=== PATIENT | male | born 1970 | race Caucasian/White ===

== ENCOUNTER 2016-10-05 23:36 | Emergency (ER) | payer MEDICARE, MEDICAID ==
[~2016-10-05] VITALS: Ht 180.3 cm; Wt 86.2 kg
[~2016-10-05 23:36] MED LIST: ADDERALL XR20 MG PO; CIPRO500 MG PO; CYCLOBENZAPRINE5 M3 PO; FLOMAX0.4 MG PO; HYDROCODONE BIT1 T11 PO; LAMICTAL200 MG PO; LEXAPRO20 MG PO; MACROBID100 M1 PO; MEDROL DOSEPAK4 MG PO; Motrin,Rufen800 MG PO; PERCOCET 325 MG1 TA2 PO; PYRIDIUM200 M1 PO; TRAZODONE HCL300 MG PO; ULTRAM50 MG PO; VALIUM10 MG PO; ZOFRAN ODT4 MG SL
[2016-10-06 00:04] LABS: BASO # 0.1 10*3/uL (0.0-0.1); BASO % 0.9 % (0.0-1.0); EOS # 0.3 10*3/uL (0.0-0.4); EOS % 2.1 % (1.0-4.0); HEMATOCRIT 46.8 % (42.0-52.0); HEMOGLOBIN 16.1 g/dl (14.0-18.0); LYMPH # 4.5 10*3/uL (1.3-4.4); LYMPH % 38.2 % (27.0-41.0); MEAN CELL VOLUME 92.3 fl (80.0-94.0); MEAN CORPUSCULAR HGB 31.8 pg (27.0-31.0); MEAN CORPUSCULAR HGB CONC 34.4 g/dl (33.0-37.0); MONO # 0.9 10*3/uL (0.1-1.0); MONO % 7.2 % (3.0-9.0); NEUT % 51.3 % (47.0-73.0); PLATELET COUNT AUTOMATED 212 10*3/uL (130-400); RED BLOOD COUNT 5.07 10*6/uL (4.50-5.90); RED CELL DISTRI WIDTH 12.2 % (0-14.5); WHITE BLOOD COUNT 11.7 10*3/uL (4.8-10.8)
[2016-10-06 00:19] LABS: ALBUMIN 4.1 gm/dl (3.1-4.5); ALKALINE PHOSPHATASE 102 U/L (45-117); BILIRUBIN, DIRECT 0.1 mg/dL (0.0-0.2); BILIRUBIN, TOTAL 0.5 mg/dl (0.2-1.0); BUN 15 mg/dl (7-24); CARBON DIOXIDE 27 mmol/L (21-32); CHLORIDE 107 mmol/L (98-107); EST GLOM FILT AFRICAN AMERICAN > 60 ml/min; GLUCOSE 110 mg/dL (65-99); POTASSIUM 3.3 mmol/L (3.5-5.1); SGOT/AST 15 IU/L (3-35); SGPT/ALT 38 U/L (12-78); SODIUM 142 mmol/L (136-145); TOTAL PROTEIN 7.1 gm/dL (6.4-8.2)
[2016-10-06] MEDS ORDERED: CATAPRES0.2 M1 PO (01:04)
[2016-10-06] MEDS ORDERED: PREDNISONE50 MG PO (01:04)
== END 2016-10-06 01:32 | disposition home or self-care (01) ==
LOC: ED 23:36
PROVIDERS: Emergency Medicine
DX: R20.2 Paresthesia of skin (principal); I15.9 Secondary hypertension, unspecified; Z87.442 Personal history of urinary calculi; Z79.899 Other long term (current) drug therapy; Z88.6 Allergy status to analgesic agent; Z88.5 Allergy status to narcotic agent

== ENCOUNTER 2016-10-28 10:53 | Emergency (ER) | payer MEDICARE, MEDICAID ==
[~2016-10-28] VITALS: Ht 175.2 cm; Wt 96.6 kg
[~2016-10-28 10:53] MED LIST changes: +CATAPRES0.2 M1 PO; +PREDNISONE50 MG PO
[2016-10-28 11:02] VITALS: BP 179/103
[2016-10-28] MEDS ORDERED: AMLODIPINE BESY1 TAB PO (11:02)
[2016-10-28 11:14] LABS: BASO # 0.1 10*3/uL (0.0-0.1); BASO % 0.5 % (0.0-1.0); EOS # 0.1 10*3/uL (0.0-0.4); EOS % 0.9 % (1.0-4.0); HEMATOCRIT 45.1 % (42.0-52.0); HEMOGLOBIN 15.9 g/dl (14.0-18.0); LYMPH # 2.4 10*3/uL (1.3-4.4); LYMPH % 23.1 % (27.0-41.0); MEAN CELL VOLUME 89.5 fl (80.0-94.0); MEAN CORPUSCULAR HGB 31.5 pg (27.0-31.0); MEAN CORPUSCULAR HGB CONC 35.3 g/dl (33.0-37.0); MEAN PLATELET VOLUME 9.8 fl (9.6-12.3); MONO # 0.5 10*3/uL (0.1-1.0); MONO % 4.8 % (3.0-9.0); NEUT # 7.2 10*3/uL (2.3-7.9); NEUT % 70.3 % (47.0-73.0); PLATELET COUNT AUTOMATED 274 10*3/uL (130-400); RED BLOOD COUNT 5.04 10*6/uL (4.50-5.90); RED CELL DISTRI WIDTH 12.1 % (0-14.5); WHITE BLOOD COUNT 10.3 10*3/uL (4.8-10.8)
[2016-10-28 11:23] VITALS: BP 154/94
[2016-10-28 11:23] LABS: INTERNATIONAL NORM RATIO 0.9 (2.0-3.5); PROTHROMBIN TIME 9.5 SECONDS (9.0-12.4)
[2016-10-28 11:32] LABS: ALBUMIN 4.5 gm/dl (3.1-4.5); ALKALINE PHOSPHATASE 129 U/L (45-117); BILIRUBIN, TOTAL 0.8 mg/dl (0.2-1.0); BUN 9 mg/dl (7-24); CARBON DIOXIDE 25 mmol/L (21-32); CHLORIDE 106 mmol/L (98-107); EST GLOM FILT AFRICAN AMERICAN > 60 ml/min; GLUCOSE 112 mg/dL (65-99); MAGNESIUM 2.3 mg/dL (1.5-2.1); POTASSIUM 3.3 mmol/L (3.5-5.1); SGOT/AST 19 IU/L (3-35); SGPT/ALT 40 U/L (12-78); SODIUM 142 mmol/L (136-145); TOTAL PROTEIN 7.7 gm/dL (6.4-8.2)
[2016-10-28 11:33] LABS: TROPONIN I < 0.015 ng/ml (<0.045)
[2016-10-28 11:48] VITALS: BP 157/85
[2016-10-28 12:02] VITALS: BP 147/84
[2016-10-28 12:52] VITALS: BP 139/85
[2016-10-28] MEDS ORDERED: ZOFRAN ODT4 MG SL (13:01)
== END 2016-10-28 14:23 | disposition left against medical advice (07) ==
LOC: ED 10:53 → EDHOLD 12:27 → 5E 12:40 → ED 14:23
PROVIDERS: Emergency Medicine
DX: R07.9 Chest pain, unspecified (principal); I10 Essential (primary) hypertension; Z90.49 Acquired absence of other specified parts of digestive tract

== ENCOUNTER → 2016-12-06 | Outpatient (CLI) | payer MEDICARE, MEDICAID ==
[~2016-12-06] MED LIST changes: +AMLODIPINE BESY1 TAB PO; +LAMICTAL100 MG PO; +LUNESTA2 MG PO
--- NOTE | ~2016-12-06 | ST ---
[place], [place] EXERCISE STRESS TEST REPORT NAME: BELA LEOS [facility] #: [id number] UNIT #: [id number] ROOM: DOCTOR: EMMA ENCISO MD BIRTHDATE: [birth year] DOS: EXERCISE STRESS TEST REASON FOR STRESS TEST: Dyspnea, abnormal electrocardiogram. PROCEDURE: The patient exercised on a full Chalino protocol for 9 minutes 40 seconds and stopped for leg fatigue. He achieved a maximum heart rate of 166, which represented 95% of his maximum predicted heart rate at a workload of 12.5. He had no chest pain. The peak blood pressure was 200/88. The resting electrocardiogram showed sinus rhythm with an incomplete right bundle branch block. No changes occurred with the exercise test. The patient's Flanagan treadmill score was 9.6 consistent with a low risk for myocardial events. IMPRESSION: 1. Excellent exercise capacity without chest pain or diagnostic electrocardiographic changes. 2. Flanagan treadmill score 9.6 consistent with low risk of cardiac events. 3. Low risk exercise stress test. EMMA ENCISO MD CM:STRESS:EXERCISE STRESS TEST REPORT [id number] SULTANA ENCISO MD
== END | disposition home or self-care (01) ==
LOC: CARD 00:22
DX: R07.9 Chest pain, unspecified (principal)

== ENCOUNTER 2017-02-24 10:49 | Emergency (ER) | payer MEDICARE, MEDICAID ==
[~2017-02-24] VITALS: Ht 175.2 cm; Wt 104.3 kg
[2017-02-24 12:17] LABS: BASO # 0.1 10*3/uL (0.0-0.1); BASO % 0.5 % (0.0-1.0); EOS # 0.2 10*3/uL (0.0-0.4); HEMATOCRIT 47.6 % (42.0-52.0); HEMOGLOBIN 16.5 g/dl (14.0-18.0); LYMPH # 1.9 10*3/uL (1.3-4.4); LYMPH % 19.8 % (27.0-41.0); MEAN CELL VOLUME 91.4 fl (80.0-94.0); MEAN CORPUSCULAR HGB 31.7 pg (27.0-31.0); MEAN CORPUSCULAR HGB CONC 34.7 g/dl (33.0-37.0); MEAN PLATELET VOLUME 9.5 fl (9.6-12.3); MONO # 0.5 10*3/uL (0.1-1.0); MONO % 5.3 % (3.0-9.0); NEUT # 6.9 10*3/uL (2.3-7.9); PLATELET COUNT AUTOMATED 213 10*3/uL (130-400); RED BLOOD COUNT 5.21 10*6/uL (4.50-5.90); RED CELL DISTRI WIDTH 11.9 % (0-14.5); WHITE BLOOD COUNT 9.6 10*3/uL (4.8-10.8)
[2017-02-24 12:42] LABS: ALKALINE PHOSPHATASE 113 U/L (45-117); BUN 14 mg/dl (7-24); CHLORIDE 104 mmol/L (98-107); CREATININE 1.03 mg/dL (0.70-1.30); POTASSIUM 4.1 mmol/L (3.5-5.1); SGOT/AST 10 IU/L (3-35); SGPT/ALT 26 U/L (12-78); SODIUM 138 mmol/L (136-145); TOTAL PROTEIN 7.2 gm/dL (6.4-8.2); TROPONIN I < 0.015 ng/ml (<0.045)
[2017-02-24 14:06] LABS: BILIRUBIN NEGATIVE (NEGATIVE); BLOOD 3+ (NEGATIVE); CLARITY SL CLOUDY (CLEAR); COLOR RED (YELLOW); GLUCOSE NEGATIVE (NEGATIVE); KETONE NEGATIVE (NEGATIVE); NITRITE NEGATIVE (NEGATIVE); PH 7.5 (5.0-9.0); UROBILINOGEN 0.2 E.U./dl (0.2-1.0)
[2017-02-24 14:07] LABS: LEUKO ESTERASE TRACE (NEGATIVE)
[2017-02-24 14:14] LABS: BACTERIA 1+; RBC TNTC rbc/hpf (0-2)
== END 2017-02-24 15:29 | disposition home or self-care (01) ==
LOC: ED 10:49
PROVIDERS: Nurse Practitioner Family
DX: R51 Headache (principal); F17.200 Nicotine dependence, unspecified, uncomplicated; Z79.899 Other long term (current) drug therapy; Z88.6 Allergy status to analgesic agent; Z88.5 Allergy status to narcotic agent; Z87.442 Personal history of urinary calculi

== ENCOUNTER 2017-05-12 18:07 | Emergency (ER) | payer MEDICARE | END 2017-05-12 19:00 | disposition left against medical advice (07) | LOC: ED 18:07 | DX: L02.818 Cutaneous abscess of other sites (principal); Z53.21 Procedure and treatment not carried out due to patient leaving prior to being seen by health care provider ==

== ENCOUNTER 2017-12-11 12:47 | Emergency (ER) | payer MEDICARE, MEDICAID ==
[~2017-12-11] VITALS: Ht 177.8 cm; Wt 77.1 kg
== END 2017-12-11 14:06 | disposition home or self-care (01) ==
LOC: ED 12:47
DX: S81.811A Laceration without foreign body, right lower leg, initial encounter (principal); Z88.6 Allergy status to analgesic agent; Z88.8 Allergy status to other drugs, medicaments and biological substances; Z79.899 Other long term (current) drug therapy; W26.0XXA Contact with knife, initial encounter; Y93.89 Activity, other specified; Y92.89 Other specified places as the place of occurrence of the external cause; Y99.8 Other external cause status

== ENCOUNTER 2017-12-15 07:13 | Emergency (ER) | payer MEDICARE, MEDICAID ==
[~2017-12-15] VITALS: Ht 177.8 cm; Wt 99.8 kg
[2017-12-15] MEDS ORDERED: NAPROSYN500 MG PO (07:26)
[2017-12-15] MEDS ORDERED: PENICILLIN-VK500 MG PO (07:26)
== END 2017-12-15 07:28 | disposition home or self-care (01) ==
LOC: ED 07:13
DX: K02.9 Dental caries, unspecified (principal); R22.0 Localized swelling, mass and lump, head; M62.838 Other muscle spasm; I10 Essential (primary) hypertension; F17.200 Nicotine dependence, unspecified, uncomplicated; Z87.442 Personal history of urinary calculi; Z79.899 Other long term (current) drug therapy; Z88.6 Allergy status to analgesic agent; Z88.8 Allergy status to other drugs, medicaments and biological substances

== ENCOUNTER 2018-12-10 17:44 | Emergency (ER) | payer MEDICARE, MEDICAID ==
[~2018-12-10] VITALS: Ht 177.8 cm; Wt 99.8 kg
[~2018-12-10 17:44] MED LIST changes: +CYCLOBENZAPRINE10 MG PO; +NAPROSYN500 MG PO; +PENICILLIN-VK500 MG PO
[2018-12-10 18:43] LABS: BASO # 0.1 10*3/uL (0.0-0.1); BASO % 0.6 % (0.0-1.0); EOS # 0.4 10*3/uL (0.0-0.4); EOS % 2.9 % (1.0-4.0); HEMOGLOBIN 15.8 g/dl (14.0-18.0); LYMPH # 3.3 10*3/uL (1.3-4.4); LYMPH % 23.7 % (27.0-41.0); MEAN CELL VOLUME 93.6 fl (80.0-94.0); MEAN CORPUSCULAR HGB 31.5 pg (27.0-31.0); MEAN CORPUSCULAR HGB CONC 33.6 g/dl (33.0-37.0); MEAN PLATELET VOLUME 9.9 fl (9.6-12.3); MONO # 1.1 10*3/uL (0.1-1.0); MONO % 7.9 % (3.0-9.0); NEUT % 64.7 % (47.0-73.0); PLATELET COUNT AUTOMATED 259 10*3/uL (130-400); RED BLOOD COUNT 5.02 10*6/uL (4.50-5.90); RED CELL DISTRI WIDTH 12.6 % (0-14.5); WHITE BLOOD COUNT 13.9 10*3/uL (4.8-10.8)
[2018-12-10 19:01] LABS: ALBUMIN 4.1 gm/dl (3.1-4.5); ALKALINE PHOSPHATASE 113 U/L (45-117); BUN 16 mg/dl (7-24); CHLORIDE 107 mmol/L (98-107); CREATININE 0.87 mg/dL (0.70-1.30); POTASSIUM 3.6 mmol/L (3.5-5.1); SGOT/AST 15 IU/L (3-35); SGPT/ALT 32 U/L (12-78); SODIUM 140 mmol/L (136-145); TOTAL PROTEIN 7.3 gm/dL (6.4-8.2)
[2018-12-10] MEDS ORDERED: Motrin,Rufen800 MG PO (20:41)
[2018-12-10] MEDS ORDERED: CLINDAMYCIN HC300 MG PO (20:41)
== END 2018-12-10 21:22 | disposition left against medical advice (07) ==
LOC: ED 17:44
PROVIDERS: Physician Assistant
DX: K12.2 Cellulitis and abscess of mouth (principal); Z88.5 Allergy status to narcotic agent; Z88.8 Allergy status to other drugs, medicaments and biological substances; Z79.899 Other long term (current) drug therapy; Z79.2 Long term (current) use of antibiotics; Z90.49 Acquired absence of other specified parts of digestive tract

== ENCOUNTER 2019-01-13 14:29 | Emergency (ER) | payer MEDICARE, MEDICAID ==
[~2019-01-13] VITALS: Ht 177.8 cm; Wt 99.8 kg
[~2019-01-13 14:29] MED LIST changes: +CLINDAMYCIN HC300 MG PO
[2019-01-13 16:53] LABS: BASO # 0.1 10*3/uL (0.0-0.1); BASO % 0.7 % (0.0-1.0); EOS # 0.2 10*3/uL (0.0-0.4); EOS % 2.3 % (1.0-4.0); HEMATOCRIT 43.9 % (42.0-52.0); LYMPH # 2.5 10*3/uL (1.3-4.4); LYMPH % 23.5 % (27.0-41.0); MEAN CELL VOLUME 91.3 fl (80.0-94.0); MEAN CORPUSCULAR HGB 31.2 pg (27.0-31.0); MEAN CORPUSCULAR HGB CONC 34.2 g/dl (33.0-37.0); MEAN PLATELET VOLUME 9.6 fl (9.6-12.3); MONO # 0.7 10*3/uL (0.1-1.0); MONO % 6.8 % (3.0-9.0); NEUT # 6.9 10*3/uL (2.3-7.9); NEUT % 66.2 % (47.0-73.0); PLATELET COUNT AUTOMATED 270 10*3/uL (130-400); RED BLOOD COUNT 4.81 10*6/uL (4.50-5.90); RED CELL DISTRI WIDTH 12.3 % (0-14.5); WHITE BLOOD COUNT 10.4 10*3/uL (4.8-10.8)
[2019-01-13 17:11] LABS: ALBUMIN 4.3 gm/dl (3.1-4.5); ALKALINE PHOSPHATASE 110 U/L (45-117); BUN 15 mg/dl (7-24); CHLORIDE 102 mmol/L (98-107); CREATININE 0.81 mg/dL (0.70-1.30); POTASSIUM 3.7 mmol/L (3.5-5.1); SGOT/AST 14 IU/L (3-35); SGPT/ALT 33 U/L (12-78); SODIUM 136 mmol/L (136-145); TOTAL PROTEIN 7.8 gm/dL (6.4-8.2)
[2019-01-13] MEDS ORDERED: CLINDAMYCIN HC300 MG PO (19:37)
[2019-01-13] MEDS ORDERED: IBUPROFEN600 MG PO (19:40)
== END 2019-01-13 19:35 | disposition home or self-care (01) ==
LOC: ED 14:29
PROVIDERS: Physician Assistant
DX: K11.20 Sialoadenitis, unspecified (principal); Z79.899 Other long term (current) drug therapy; Z87.442 Personal history of urinary calculi; Z88.5 Allergy status to narcotic agent; Z88.6 Allergy status to analgesic agent; Z88.8 Allergy status to other drugs, medicaments and biological substances

== ENCOUNTER 2019-10-05 11:53 | Emergency (ER) | payer OTHER ==
[~2019-10-05] VITALS: Ht 177.8 cm; Wt 99.8 kg
[~2019-10-05 11:53] MED LIST changes: +IBUPROFEN600 MG PO
[2019-10-05 12:36] LABS: BASO # 0.1 10*3/uL (0.0-0.1); BASO % 0.5 % (0.0-1.0); EOS # 0.1 10*3/uL (0.0-0.4); EOS % 0.8 % (1.0-4.0); HEMATOCRIT 45.5 % (42.0-52.0); LYMPH # 1.8 10*3/uL (1.3-4.4); LYMPH % 13.3 % (27.0-41.0); MEAN CELL VOLUME 92.9 fl (80.0-94.0); MEAN CORPUSCULAR HGB 32.2 pg (27.0-31.0); MEAN CORPUSCULAR HGB CONC 34.7 g/dl (33.0-37.0); MEAN PLATELET VOLUME 9.4 fl (9.6-12.3); MONO # 0.6 10*3/uL (0.1-1.0); MONO % 4.7 % (3.0-9.0); NEUT # 10.6 10*3/uL (2.3-7.9); NEUT % 80.1 % (47.0-73.0); PLATELET COUNT AUTOMATED 259 10*3/uL (130-400); RED CELL DISTRI WIDTH 12.3 % (0-14.5); WHITE BLOOD COUNT 13.3 10*3/uL (4.8-10.8)
[2019-10-05 12:43] LABS: ACT PARTIAL THROMBO TIME 22.5 SECONDS (20.0-32.1); INTERNATIONAL NORM RATIO 0.9 (2.0-3.5)
[2019-10-05 12:57] LABS: ALBUMIN 4.3 gm/dl (3.1-4.5); ALKALINE PHOSPHATASE 112 U/L (45-117); BUN 16 mg/dl (7-24); CHLORIDE 101 mmol/L (98-107); CREATININE 0.87 mg/dL (0.70-1.30); LIPASE 56 U/L (73-393); POTASSIUM 3.6 mmol/L (3.5-5.1); SGOT/AST 16 IU/L (3-35); SGPT/ALT 39 U/L (12-78); SODIUM 133 mmol/L (136-145); TOTAL PROTEIN 7.9 gm/dL (6.4-8.2)
[2019-10-05 13:08] LABS: TROPONIN I < 0.015 ng/ml (<0.045)
[2019-10-05 13:26] LABS: BACTERIA TRACE; BILIRUBIN NEGATIVE (NEGATIVE); BLOOD NEGATIVE (NEGATIVE); CLARITY CLEAR (CLEAR); COLOR YELLOW (YELLOW); GLUCOSE NEGATIVE (NEGATIVE); KETONE NEGATIVE (NEGATIVE); LEUKO ESTERASE NEGATIVE (NEGATIVE); MUCOUS 2+; NITRITE NEGATIVE (NEGATIVE); UROBILINOGEN 0.2 E.U./dl (0.2-1.0)
== END 2019-10-05 16:22 | disposition left against medical advice (07) ==
LOC: ED 11:53
PROVIDERS: Physician Assistant
DX: R61 Generalized hyperhidrosis (principal); R11.0 Nausea; R42 Dizziness and giddiness; R11.2 Nausea with vomiting, unspecified; I10 Essential (primary) hypertension; R79.1 Abnormal coagulation profile; Z88.6 Allergy status to analgesic agent; Z88.8 Allergy status to other drugs, medicaments and biological substances; Z79.899 Other long term (current) drug therapy

== ENCOUNTER → 2020-02-01 | Outpatient (CLI) | payer OTHER | END | disposition home or self-care (01) | LOC: CARD 08:40 | DX: F90.9 Attention-deficit hyperactivity disorder, unspecified type (principal) ==

== ENCOUNTER 2022-05-06 13:09 | Emergency (ER) | payer MEDICARE, MEDICAID ==
[2022-05-06] MEDS ORDERED: DOXEPIN25 MG PO (13:32)
[2022-05-06] MEDS ORDERED: TOFRANIL10 MG PO (13:32)
[2022-05-06] MEDS ORDERED: CAPLYTA42 MG PO (13:32)
[2022-05-06] MEDS ORDERED: MINIPRESS1 M1 PO (13:33)
[2022-05-06 15:26] LABS: BASO # 0.1 10*3/uL (0.0-0.1); BASO % 0.9 % (0.0-1.0); EOS # 0.5 10*3/uL (0.0-0.4); EOS % 3.4 % (1.0-4.0); HEMATOCRIT 47.3 % (42.0-52.0); LYMPH # 3.1 10*3/uL (1.3-4.4); LYMPH % 22.6 % (27.0-41.0); MEAN CELL VOLUME 88.2 fl (80.0-94.0); MEAN CORPUSCULAR HGB 31.2 pg (27.0-31.0); MEAN CORPUSCULAR HGB CONC 35.3 g/dl (33.0-37.0); MEAN PLATELET VOLUME 9.5 fl (9.6-12.3); MONO # 0.8 10*3/uL (0.1-1.0); MONO % 6.1 % (3.0-9.0); NEUT # 9.2 10*3/uL (2.3-7.9); NEUT % 66.5 % (47.0-73.0); PLATELET COUNT AUTOMATED 271 10*3/uL (130-400); RED BLOOD COUNT 5.36 10*6/uL (4.50-5.90); RED CELL DISTRI WIDTH 12.2 % (0-14.5); WHITE BLOOD COUNT 13.9 10*3/uL (4.8-10.8)
[2022-05-06 15:40] LABS: ALKALINE PHOSPHATASE 115 U/L (46-116); BUN 11 mg/dl (9-23); CHLORIDE 105 mmol/L (98-107); POTASSIUM 3.8 mmol/L (3.4-5.1); SGPT/ALT 23 U/L (10-49); TOTAL PROTEIN 7.1 gm/dL (6.0-8.0)
== END 2022-05-06 16:41 | disposition home or self-care (01) ==
LOC: ED 13:09
PROVIDERS: Nurse Practitioner Family
DX: R20.0 Anesthesia of skin (principal); T50.905A Adverse effect of unspecified drugs, medicaments and biological substances, initial encounter; Y92.89 Other specified places as the place of occurrence of the external cause; Z88.1 Allergy status to other antibiotic agents; Z88.8 Allergy status to other drugs, medicaments and biological substances; Z87.442 Personal history of urinary calculi; Z87.891 Personal history of nicotine dependence

== ENCOUNTER 2023-11-14 08:22 | Emergency (ER) | payer OTHER, MEDICAID ==
[~2023-11-14] VITALS: Ht 177.8 cm; Wt 104.3 kg
[~2023-11-14 08:22] MED LIST changes: +CAPLYTA42 MG PO; +DOXEPIN25 MG PO; +MINIPRESS1 M1 PO; +TOFRANIL10 MG PO
[2023-11-14] MEDS ORDERED: ZESTORETIC 20-1 EACH PO (08:39)
[2023-11-14] MEDS ORDERED: ATARAX,VISTARIL10 MG PO (08:39)
[2023-11-14] MEDS ORDERED: LAMOTRIGINE150 MG PO (08:39)
[2023-11-14] MEDS ORDERED: VYVANSE60 MG PO (08:40)
[2023-11-14] MEDS ORDERED: QUETIAPINE FUMA50 M1 PO (08:40)
[2023-11-14] MEDS ORDERED: CLARITIN10 MG PO (08:51)
[2023-11-14] MEDS ORDERED: FLONASE ALLERG9.9 ML NAS (08:52)
== END 2023-11-14 09:50 | disposition home or self-care (01) ==
LOC: ED 08:22
DX: J30.2 Other seasonal allergic rhinitis (principal); I10 Essential (primary) hypertension; F31.9 Bipolar disorder, unspecified; F90.9 Attention-deficit hyperactivity disorder, unspecified type; Z88.5 Allergy status to narcotic agent; Z88.8 Allergy status to other drugs, medicaments and biological substances; Z88.6 Allergy status to analgesic agent; Z90.49 Acquired absence of other specified parts of digestive tract; Z87.442 Personal history of urinary calculi; Z87.891 Personal history of nicotine dependence

== ENCOUNTER 2023-12-14 07:27 | Emergency (ER) | payer OTHER, MEDICAID ==
[~2023-12-14] VITALS: Ht 177.8 cm; Wt 99.8 kg
[~2023-12-14 07:27] MED LIST changes: +ATARAX,VISTARIL10 MG PO; +CLARITIN10 MG PO; +FLONASE ALLERG9.9 ML NAS; +LAMOTRIGINE150 MG PO; +QUETIAPINE FUMA50 M1 PO; +VYVANSE60 MG PO; +ZESTORETIC 20-1 EACH PO
[2023-12-14 09:13] LABS: BASO # 0.1 10*3/uL (0.0-0.1); BASO % 0.7 % (0.0-1.0); EOS # 0.2 10*3/uL (0.0-0.4); EOS % 2.7 % (1.0-4.0); LYMPH # 2.5 10*3/uL (1.3-4.4); LYMPH % 31.3 % (27.0-41.0); MEAN CORPUSCULAR HGB 31.4 pg (27.0-31.0); MEAN CORPUSCULAR HGB CONC 33.8 g/dl (33.0-37.0); MEAN PLATELET VOLUME 9.1 fl (9.6-12.3); MONO # 0.5 10*3/uL (0.1-1.0); MONO % 6.2 % (3.0-9.0); NEUT # 4.7 10*3/uL (2.3-7.9); NEUT % 58.7 % (47.0-73.0); PLATELET COUNT AUTOMATED 238 10*3/uL (130-400); RED BLOOD COUNT 4.84 10*6/uL (4.50-5.90); RED CELL DISTRI WIDTH 12.3 % (0-14.5)
[2023-12-14 09:28] LABS: URINE AMPHETAMINES Positive (1000ng/ml); URINE BARBITURATES Negative (200ng/ml); URINE BENZODIAZEPINES Negative (200ng/ml); URINE CANNABINOIDS (THC) Positive (50ng/ml); URINE COCAINE Negative (300ng/ml); URINE METHADONE Negative (300ng/ml); URINE OPIATES Negative (300ng/ml); URINE PHENCYCLIDINE Negative (25ng/ml)
[2023-12-14] MEDS ORDERED: diphenhydrAMINE hydrochloride 25 MG CAP PO ONE (09:35)
[2023-12-14] MEDS ORDERED: predniSONE 20 MG TAB PO ONE (09:35)
[2023-12-14 09:48] LABS: ALKALINE PHOSPHATASE 110 U/L (46-116); BUN 11 mg/dl (9-23); CHLORIDE 106 mmol/L (98-107); POTASSIUM 3.9 mmol/L (3.4-5.1); SGPT/ALT 23 U/L (5-49); TOTAL PROTEIN 6.8 gm/dL (6.0-8.0)
[2023-12-14] MEDS ORDERED: BENADRYL ALLERG50 MG PO (10:04)
== END 2023-12-14 10:25 | disposition home or self-care (01) ==
LOC: ED 07:27
PROVIDERS: Internal Medicine
DX: L25.9 Unspecified contact dermatitis, unspecified cause (principal); I10 Essential (primary) hypertension; F31.9 Bipolar disorder, unspecified; F90.9 Attention-deficit hyperactivity disorder, unspecified type; Z88.5 Allergy status to narcotic agent; Z88.8 Allergy status to other drugs, medicaments and biological substances; Z90.49 Acquired absence of other specified parts of digestive tract; Z87.442 Personal history of urinary calculi; Z87.891 Personal history of nicotine dependence

== ENCOUNTER 2023-12-24 23:59 | Emergency (ER) | payer OTHER, MEDICAID ==
[~2023-12-24 23:59] MED LIST changes: +BENADRYL ALLERG50 MG PO
[2023-12-25] MEDS ORDERED: Ondansetron Hydrochloride 4 MG TAB SL ONE (00:15)
[2023-12-25] MEDS ORDERED: Bacitracin Zinc 14 GM TUBE T ONE (00:15)
[2023-12-25] MEDS ORDERED: methylPREDNISolone sod succ 125 MG VIAL IM ONE (00:15)
[2023-12-25] MEDS ORDERED: Acetaminophen/Oxycodone 5 MG/325 MG TABLET PO ONE ×2 (00:15→00:35)
[2023-12-25] MEDS ORDERED: Sulfamethoxazole/Trimethopri 1 TAB TAB PO ONE (00:15)
[2023-12-25] MEDS ORDERED: SEPTDS PO (00:20)
== END 2023-12-25 00:25 | disposition home or self-care (01) ==
LOC: ED 23:59
DX: L03.012 Cellulitis of left finger (principal); L03.011 Cellulitis of right finger; T78.40XA Allergy, unspecified, initial encounter; Z88.5 Allergy status to narcotic agent; Z88.8 Allergy status to other drugs, medicaments and biological substances; Z90.49 Acquired absence of other specified parts of digestive tract; Z87.442 Personal history of urinary calculi; X58.XXXA Exposure to other specified factors, initial encounter

== ENCOUNTER 2024-01-03 05:59 | Emergency (ER) | payer OTHER, MEDICAID ==
[~2024-01-03] VITALS: Ht 177.8 cm; Wt 99.8 kg
[~2024-01-03 05:59] MED LIST changes: +SEPTDS PO
[2024-01-03] MEDS ORDERED: Bacitracin Zinc 14 GM TUBE T ONE (06:30)
[2024-01-03] MEDS ORDERED: SILVER SULFADIAZINE 25 GM TUBE T ONE (06:30)
[2024-01-03] MEDS ORDERED: SILVADENE20 GM T (06:32)
[2024-01-03] MEDS ORDERED: ANTIBIOTIC28.4 GM T (06:32)
[2024-01-03] MEDS ORDERED: SEPTDS PO (06:32)
== END 2024-01-03 06:56 | disposition home or self-care (01) ==
LOC: ED 05:59
DX: F42.4 Excoriation (skin-picking) disorder (principal); I10 Essential (primary) hypertension; F31.9 Bipolar disorder, unspecified; F90.9 Attention-deficit hyperactivity disorder, unspecified type; Z87.442 Personal history of urinary calculi; Z88.5 Allergy status to narcotic agent; Z88.8 Allergy status to other drugs, medicaments and biological substances; Z90.49 Acquired absence of other specified parts of digestive tract; Z87.891 Personal history of nicotine dependence

== ENCOUNTER → 2024-06-24 | Outpatient (CLI) | payer OTHER, MEDICAID ==
[~2024-06-24] MED LIST changes: +ANTIBIOTIC28.4 GM T; +SILVADENE20 GM T
== END | disposition home or self-care (01) ==
LOC: LAB 07:30
PROVIDERS: ATTEND Physician Assistant
DX: Z51.81 Encounter for therapeutic drug level monitoring (principal); F31.9 Bipolar disorder, unspecified

== ENCOUNTER 2024-07-26 08:06 | Emergency (ER) | payer OTHER, MEDICAID ==
[~2024-07-26] VITALS: Ht 177.8 cm; Wt 103.4 kg
[2024-07-26] MEDS ORDERED: LAMOTRIGINE200 MG PO (08:14)
[2024-07-26] MEDS ORDERED: Acetaminophen/Oxycodone 5 MG/325 MG TABLET PO ONE (08:20)
[2024-07-26] MEDS ORDERED: MELOXICAM15 MG PO (08:28)
== END 2024-07-26 08:45 | disposition home or self-care (01) ==
LOC: ED 08:06
DX: S63.502A Unspecified sprain of left wrist, initial encounter (principal); I10 Essential (primary) hypertension; E78.5 Hyperlipidemia, unspecified; Z88.5 Allergy status to narcotic agent; Z88.8 Allergy status to other drugs, medicaments and biological substances; Z79.899 Other long term (current) drug therapy; Z87.442 Personal history of urinary calculi; W18.39XA Other fall on same level, initial encounter; Y93.89 Activity, other specified; Y92.89 Other specified places as the place of occurrence of the external cause; Y99.8 Other external cause status

== ENCOUNTER 2024-09-23 02:43 | Emergency (ER) | payer OTHER, MEDICAID ==
[~2024-09-23] VITALS: Ht 177.8 cm; Wt 104.3 kg
[~2024-09-23 02:43] MED LIST changes: +LAMOTRIGINE200 MG PO; +MELOXICAM15 MG PO
[2024-09-23 03:26] LABS: BILIRUBIN Negative (Negative); BLOOD 1+ (Negative); CLARITY Clear (Clear); COLOR Yellow (Yellow); GLUCOSE Negative (Negative); KETONE Negative (Negative); LEUKO ESTERASE Negative (Negative); NITRITE Negative (Negative); PH 6.5 (4.5-8.0); UROBILINOGEN 0.2 E.U./dl (0.0-1.0)
[2024-09-23] MEDS ORDERED: Ondansetron Hydrochloride 4 MG/2 ML VIAL IV ONE (03:30)
[2024-09-23] MEDS ORDERED: Ketorolac Tromethamine 30 MG/ML VIAL IV ONE (03:30)
[2024-09-23 03:33] LABS: EPITHELIAL CELLS 16-20; RBC 21-30 rbc/hpf (0-2)
[2024-09-23 03:34] LABS: WBC 0-2 wbc/hpf (0-5)
[2024-09-23] MEDS ORDERED: Tamsulosin Hydrochloride 0.4 MG CAP PO ONE (05:10)
[2024-09-23] MEDS ORDERED: HYDROCODONE-AC1 EAC1 PO (05:19)
[2024-09-23] MEDS ORDERED: Ondansetron4 MG PO (05:19)
[2024-09-23] MEDS ORDERED: FLOMAX0.4 MG PO (05:19)
== END 2024-09-23 05:31 | disposition home or self-care (01) ==
LOC: ED 02:43
PROVIDERS: Internal Medicine
DX: N13.2 Hydronephrosis with renal and ureteral calculous obstruction (principal); R11.2 Nausea with vomiting, unspecified; Z88.5 Allergy status to narcotic agent; Z88.8 Allergy status to other drugs, medicaments and biological substances; Z79.899 Other long term (current) drug therapy; Z87.442 Personal history of urinary calculi